=== PATIENT | male | born 1945 | race Caucasian/White ===

== ENCOUNTER → 2017-12-27 | Outpatient (CLI) | payer OTHER, MEDICAID ==
[~2017-12-27] MED LIST: ASPIRIN325 PO; CENTRUM SILVER1 EAC4 PO; COMPAZINE10 MG PO; CRESTOR20 MG PO; FISH OIL 1,001000 M2 PO; FLOMAX PO; FLOMAX0.4 MG PO; FLONASE 0.05%50 MCG NASAL; FOLIC ACID1 MG PO; HYDROCODON-ACE1 EAC7 PO; HYDROCODON-ACE1 EACH PO; LIPITOR 20 MG T20 M1 PO; MEGESTROL800 MG/20 PO; MS CONTIN30 MG PO; NEURONTIN 300300 M1 PO; NEURONTIN600 MG PO; NORCO 10-325 T1 EACH PO; NORTRIPTYLINE H25 M3 PO; PERCOCET 5-3251 EACH PO; PRAVACHOL40 MG PO; PRILOSEC 20 MG20 MG PO; RECTICARE30 GM TP; REGLAN 10 MG TA10 MG PO; TRAMADOL 50 MG50 MG PO; TRICOR145 MG PO; VALIUM5 MG; VITAMIN B-1100 M1 PO; ZOCOR40 MG PO; ZOCOR80 MG PO; megace PO
== END ==
LOC: M.ULTRA 15:51
DX: M79.604 Pain in right leg (principal); M79.89 Other specified soft tissue disorders; R60.0 Localized edema

== ENCOUNTER → 2018-01-03 | Outpatient (CLI) | payer OTHER, MEDICAID | LOC: M.MRI 11:05 | DX: M47.896 Other spondylosis, lumbar region (principal); M48.061 Spinal stenosis, lumbar region without neurogenic claudication; M47.897 Other spondylosis, lumbosacral region; M51.46 Schmorl's nodes, lumbar region ==

== ENCOUNTER 2020-07-11 12:56 | Emergency (ER) | payer OTHER ==
[~2020-07-11] VITALS: Ht 175.3 cm; Wt 77.1 kg
[2020-07-11 15:04] LABS: ABSOLUTE BASOPHILS 0.1 thou/uL (0.0-0.2); ABSOLUTE EOSINOPHILS 0.1 thou/uL (0.0-0.7); ABSOLUTE LYMPHOCYTES 1.5 thou/uL (0.8-5.3); ABSOLUTE MONOCYTES 0.8 thou/uL (0.0-1.2); ABSOLUTE NEUTROPHILS 3.8 thou/uL (1.6-8.1); HEMATOCRIT 38.5 % (42.0-52.0); HEMOGLOBIN 13.4 gm/dL (14.0-18.0); LYMPHOCYTES 23.5 %; MCH 31.4 pg (26.0-34.0); MCHC 34.8 g/dL (28.0-37.0); MCV 90.2 fL (80.0-100.0); MONOCYTES 12.9 %; MPV 7.6 fl. (7.2-11.1); NUCLEATED RBCS 0 /100WBC; PLATELET COUNT* 160 thou/uL (150-400); POLYS 61.6 %; RBC 4.27 mil/uL (4.50-6.00); RDW-CV 15.6 % (10.5-14.5); WBC 6.2 thou/uL (4.0-11.0)
[2020-07-11 15:13] LABS: CALCIUM 9.3 mg/dL (8.5-10.1); CREATININE 1.5 mg/dL (0.6-1.3)
[2020-07-11 15:15] LABS: APTT 26.2 Seconds (25.0-31.3); INR 1.3
[2020-07-11 15:18] LABS: ALBUMIN 3.8 g/dL (3.4-5.0); TOTAL BILIRUBIN 1.2 mg/dL (<0.1-1.0); TOTAL PROTEIN 8.1 g/dL (6.4-8.2)
[2020-07-11 17:40] VITALS: BP 138/78
== END 2020-07-11 17:40 | disposition home or self-care (01) ==
LOC: M.ERS 12:56
PROVIDERS: Nurse Practitioner Family
DX: H53.8 Other visual disturbances (principal); E78.00 Pure hypercholesterolemia, unspecified; K21.9 Gastro-esophageal reflux disease without esophagitis; M19.90 Unspecified osteoarthritis, unspecified site; R79.1 Abnormal coagulation profile; F17.210 Nicotine dependence, cigarettes, uncomplicated; Z79.899 Other long term (current) drug therapy